=== PATIENT | male | born 1965 | race Two or more races ===

== ENCOUNTER 2017-01-30 14:53 | Emergency (ER) | payer MEDICAID ==
[~2017-01-30] VITALS: Ht 162.6 cm; Wt 77.1 kg
--- NOTE | 2017-01-30 14:56 | Emergency Room Report ---
History of Present Illness General Source: Patient, EMS Present Illness HPI Patient is a 51-year-old male brought in by EMS after increased difficulty with chest pain. Reportedly patient had been having chest pain onset at rest. Patient had recently been heavily using alcohol. The reportedly had an slight improvement after 3 sprays of nitroglycerin and an aspirin. The patient prior history of pacemaker placement. Allergies: Coded Allergies: No Known Allergies (Unverified , 03/08/12) Patient History Past Medical History: see triage record Reviewed Nursing Documentation: PMH: Agreed, PSxH: Agreed Nursing Documentation-PMH Hx Cardiac Problems: Yes - CABG Hx Hypertension: Yes Review of Systems All Other Systems: negative except mentioned in HPI Physical Exam Sp02 EP Interpretation: reviewed, normal General Appearance: normal inspection, well appearing, no apparent distress, alert, GCS 15 Head: atraumatic ENT: normal ENT inspection, hearing grossly normal, normal voice, other - oral mass to right side of mouth Neck: normal inspection, full range of motion, supple, no bony tend Respiratory: normal inspection, lungs clear, normal breath sounds, no respiratory distress, no retraction, no wheezing Cardiovascular #1: regular rate, rhythm, no edema Gastrointestinal: normal inspection, normal bowel sounds, non tender, soft, no guarding, no hernia Genitourinary: no CVA tenderness Musculoskeletal: normal inspection, back normal, normal range of motion Neurologic: normal inspection, alert, responsive, speech normal Psychiatric: normal inspection, judgement/insight normal, mood/affect normal Skin: normal inspection, normal color, no rash Medical Decision Making Diagnostic Impression: Primary Impression: Alcohol intoxication Additional Impressions: Oral mass GERD (gastroesophageal reflux disease) ER Course Patient presented for chest pain. Differential diagnosis included but was not limited to acute coronary syndrome, pulmonary embolism, pneumonia, aortic dissection, shingles, pneumothorax, aortic dissection, esophageal rupture, pericarditis. The patient was noted to have a current alcohol abuse.Because of complexity of patient's case laboratory testing and imaging studies were ordered. Laboratory testing showed negative troponin as well as elevated blood alcohol level. Patient was noted to have initially confused mental status. Patient had gradual improvement of neurologic status. At the time of discharge the patient was alert and ambulatory without assistance and had a good plan for self care. The patient was given Mylanta for pain. Patient was seen and examined by me in the emergency department. No life- threatening signs or symptoms were identified. Patient is stable for discharge from emergency Department. Patient was advised to stop drinking alcohol. And to followup with outpatient therapy for alcohol treatment. Patient was noted to have some evidence of a mass to the right side of his oral cavity. This may or presented malignant lesion. Patient was advised that he would need followup with ENT Labs Test 01/30/17 15:14 White Blood Count 5.3 K/UL (4.8-10.8) Red Blood Count 4.24 M/UL (4.70-6.10) Hemoglobin 13.5 G/DL (14.2-18.0) Hematocrit 39.5 % (42.0-52.0) Mean Corpuscular Volume 93 FL (80-99) Mean Corpuscular Hemoglobin 31.8 PG (27.0-31.0) Mean Corpuscular Hemoglobin Concent 34.2 G/DL (32.0-36.0) Red Cell Distribution Width 15.8 % (11.6-14.8) Platelet Count 229 K/UL (150-450) Mean Platelet Volume 5.8 FL (6.5-10.1) Neutrophils (%) (Auto) 39.8 % (45.0-75.0) Lymphocytes (%) (Auto) 49.9 % (20.0-45.0) Monocytes (%) (Auto) 8.4 % (1.0-10.0) Eosinophils (%) (Auto) 0.5 % (0.0-3.0) Basophils (%) (Auto) 1.5 % (0.0-2.0) Sodium Level 140 mEQ/L (135-145) Potassium Level 4.0 mEQ/L (3.4-4.9) Chloride Level 96 mEQ/L (98-107) Carbon Dioxide Level 24 mEQ/L (20-30) Anion Gap 20 (5-15) Blood Urea Nitrogen 4 mg/dL (7-23) Creatinine 0.6 mg/dL (0.7-1.2) Estimat Glomerular Filtration Rate > 60 mL/min (>60) Glucose Level 147 mg/dL (74-106) Calcium Level 8.7 mg/dL (8.6-10.2) Total Bilirubin 0.3 mg/dL (0.0-1.2) Aspartate Amino Transf (AST/SGOT) 33 U/L (5-40) Alanine Aminotransferase (ALT/SGPT) 31 U/L (3-41) Alkaline Phosphatase 74 U/L (40-129) Total Creatine Kinase 299 U/L (38-174) Creatine Kinase MB 6.8 ng/mL (< 6.7) Creatine Kinase MB Relative Index 2.2 Troponin I < 0.30 ng/mL (<=0.30) Pro-B-Type Natriuretic Peptide 331 pg/mL (0-125) Total Protein 7.3 g/dL (6.6-8.7) Albumin 4.5 g/dL (3.5-5.2) Globulin 2.8 g/dL Albumin/Globulin Ratio 1.6 (1.0-2.7) Serum Alcohol 219 mg/dL EKG Diagnostic Results Rate: other - paced rhythm, Rhythm Strip Diag. Results EP Interpretation: yes Rhythm: no PVC's, no ectopy, other - paced rhythm Chest X-Ray Diagnostic Results EP Interpretation: Yes Findings: no consolidation, no effusion, no pneumothorax, no acute cardiopulmonary disease Number of Views: 1 Status: improved Disposition: HOME, SELF-CARE Condition: Stable Scripts Omeprazole Magnesium (PRILOSEC) 10 Mg Suspdr.pkt 10 MG ORAL DAILY, #30 PACKET Prov: Ghassan Shields 01/30/17 Ghassan Shields January 30, 2017 14:56
[2017-01-30] MEDS ORDERED: FUROSEMIDE40 MG ORAL (15:37)
[2017-01-30] MEDS ORDERED: ISOSORBIDE DINIT5 MG ORAL (15:37)
[2017-01-30] MEDS ORDERED: SPIRONOLACTONE100 MG ORAL (15:37)
[2017-01-30] MEDS ORDERED: ASPIRIN EC325 MG ORAL (15:37)
[2017-01-30] MEDS ORDERED: ASPIRIN81 MG ORAL (15:37)
[2017-01-30] MEDS ORDERED: ATORVASTATIN CA40 MG ORAL (15:37)
[2017-01-30] MEDS ORDERED: CARVEDILOL6.25 MG ORAL (15:37)
[2017-01-30 15:40] LABS: BASOPHILS % (AUTO) 1.5 % (0.0-2.0); EOSINOPHILS % (AUTO) 0.5 % (0.0-3.0); LYMPHOCYTES % (AUTO) 49.9 % (20.0-45.0); MEAN CORPUSCULAR HEMOGLOBIN 31.8 PG (27.0-31.0); MEAN CORPUSCULAR HGB CONC 34.2 G/DL (32.0-36.0); MEAN CORPUSCULAR VOLUME 93 FL (80-99); MEAN PLATELET VOLUME 5.8 FL (6.5-10.1); MONOCYTES % (AUTO) 8.4 % (1.0-10.0); NEUTROPHILS % (AUTO) 39.8 % (45.0-75.0); PLATELET COUNT 229 K/UL (150-450); RED BLOOD COUNT 4.24 M/UL (4.70-6.10); RED CELL DISTRIBUTION WIDTH 15.8 % (11.6-14.8); WHITE BLOOD COUNT 5.3 K/UL (4.8-10.8)
[2017-01-30 15:47] LABS: ALANINE AMINOTRANSFERASE 31 U/L (3-41); ALBUMIN/GLOBULIN RATIO 1.6 (1.0-2.7); ANION GAP 20 (5-15); ASPARTATE AMINO TRANSFERASE 33 U/L (5-40); CALCIUM 8.7 mg/dL (8.6-10.2); CARBON DIOXIDE 24 mEQ/L (20-30); CHLORIDE 96 mEQ/L (98-107); CREATININE 0.6 mg/dL (0.7-1.2); GLOMERULAR FILTRATION RATE > 60 mL/min (>60); HEMOLYSIS 8; SODIUM 140 mEQ/L (135-145); TOTAL PROTEIN 7.3 g/dL (6.6-8.7); TROPONIN I < 0.30 ng/mL (<=0.30)
[2017-01-30 15:57] LABS: CKMB 6.8 ng/mL (< 6.7)
[2017-01-30 16:20] VITALS: BP 123/67
[2017-01-30 17:10] VITALS: BP 126/70
[2017-01-30] MEDS ORDERED: Thiamine HCl 100 MG in D5W 55 ML IVPB SCH (18:15)
[2017-01-30] MEDS ORDERED: Thiamine HCl 100mg/ml Inj ONE (18:17)
[2017-01-30] MEDS ORDERED: PRILOSEC10 M1 ORAL (18:27)
[2017-01-30 18:36] VITALS: BP 146/78
[2017-01-30 19:35] VITALS: BP 146/78
--- NOTE | 2017-01-31 14:26 | Cardiology Report ---
APPROVED REPORT EKG Measurement Heart [id number] atrail sensed ventricular pacing
--- NOTE | 2017-02-01 13:48 | Diagnostic Imaging Report ---
Indication: Dyspnea Comparison: 12/05/13 A single view chest radiograph was obtained. Findings: Heart is borderline enlarged. Lungs are clear. No effusions are seen. Pacemaker and sternotomy are noted. Impression: No acute disease
== END 2017-01-30 19:39 | disposition home or self-care (01) ==
LOC: EDBD 14:53 → EMR 15:21
DX: F10.129 Alcohol abuse with intoxication, unspecified (principal); K13.79 Other lesions of oral mucosa; K21.9 Gastro-esophageal reflux disease without esophagitis; Z95.0 Presence of cardiac pacemaker; I10 Essential (primary) hypertension; Z95.1 Presence of aortocoronary bypass graft
CPT/HCPCS: 36415; 71010; 80053; 80329; 82550; 82553; 83880; 84484; 85025; 93005; 96360; 96374; 99284; J7040